=== PATIENT | male | born 1950 | race African-American/Black ===

== ENCOUNTER 2019-08-16 11:59 | Outpatient (CLI) | payer MEDICARE ==
--- NOTE | 2019-08-16 13:21 | RAD ---
2 VIEWS CHEST: Date: 08/16/19 COMPARISON: 06/23/19. HISTORY: Dyspnea. FINDINGS: Two views of the chest show normal sized cardiomediastinal silhouette. There is no evidence of consol idation, mass, or pleural effusion. The bones are unremarkable. IMPRESSION: No evidence of acute cardiopulmonary disease. POS: [facility]
== END 2019-08-16 12:00 | disposition home or self-care (01) ==
LOC: RAD 11:59
PROVIDERS: ATTEND Internal Medicine Critical Care Medicine
DX: R06.00 Dyspnea, unspecified (principal)
CPT/HCPCS: 71046